=== PATIENT | male | born 1995 | race Caucasian/White ===

== ENCOUNTER 2020-03-17 21:06 | Emergency (ER) | payer MEDICAID, SELFPAY ==
[2020-03-17 21:07] VITALS: BP 124/82; PULSE 82; RESP 16; TEMP 37.1; O2SAT 97; BMI 22.1
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
[2020-03-17 21:50] VITALS: BP 000/00; PULSE 0; RESP 0; TEMP -17.7; TEMP 0; O2SAT 0
== END 2020-03-17 21:50 | disposition home or self-care (01) ==
PROVIDERS: Emergency Provider Emergency Medicine
DX: S00.83XA Contusion of other part of head, initial encounter (principal); Y04.0XXA Assault by unarmed brawl or fight, initial encounter; Y92.9 Unspecified place or not applicable; F17.210 Nicotine dependence, cigarettes, uncomplicated
CPT/HCPCS: 99281

== ENCOUNTER 2020-04-16 16:39 | Emergency (ER) | payer MEDICAID, SELFPAY ==
[2020-04-16 17:00] VITALS: BP 114/69; PULSE 93; RESP 18; TEMP 36.7; O2SAT 98; BMI 25.0
--- NOTE | 2020-04-16 17:19 | HMH.EDUTC ---
[facility] [place] Disposition Clinical Impression: Abscess Disposition: Home, Self-Care Condition on Discharge: Good Instructions: Clindamycin, DI for Skin Abscess Additional Instructions: *Start antibiotic(s) immediately and be sure to take as ordered for the FULL length of time although you may be feeling better or start to see improvement in the next 24-48 hours *Monitor closely. Outlined redness so that you can monitor easier. Follow up immediately for new or worsening symptoms including but not limited to redness, swelling, streaking from site fever or chills. *Warm compress 15 minutes 3-4 times day *Never squeeze or pop these on your own. Seek immediate medical attention next time this occurs *Monitor Temp. Tylenol every 4 hours as needed and ibuprofen every 6 hours as needed (as long as your primary care doctor has told you that it is ok to take both. For fever, aches, pain. ER if no less that 101 despite Tylenol and ibuprofen Follow up with your family doctor/primary care physician in the next 48-72 hours if no improvement Stop taking Bactrim and start taking Clindamycin as prescribed Follow up with your Family Doctor in the next 48-72 hours for reassessment of area for improvement or any worsening of symptoms your wound culture should be back to make sure you are on the right medication and follow up with them immediately if any worsening of symptoms Follow up with Dermatology or at with home mortgage disclosure act specialist if swelling or redness to eye area Return if needed Prescriptions: clindamycin HCL [Cleocin HCl] 300 mg PO QID 10 Days #40 cap Transmission Status: Received by [id number] Referrals: Kevon Valencia MD [Referring] - Dewayne Haile MD [Primary Care Provider] - As needed (Follow up in the next 48-72 hours for reassessment of area for improvement and immediately if any worsening of symptoms) Time of Disposition: 17:36 Medical Decision Making - Otoniel Inquiry Pt receiving controlled substance: No Otoniel was queried for this patient: No Vital Signs: 04/16/20 17:00 Temperature 98.1 F Temperature Source Oral Pulse Rate [Right Brachial] 93 H Respiratory Rate 18 Blood Pressure [Right Arm] 114/69 Blood Pressure Mean [Right Arm] 84 Blood Pressure Source [Right Arm] Automatic Cuff Blood Pressure Position [Right Arm] Sitting 02 Sat by Pulse Oximetry 98 Oxygen Delivery Method Room Air Orders (Tests/Meds): ORDERS Category Date Time Status Wound Culture and Gram Stain Stat Micro 04/16/20 17:33 Ordered Medical Decision Narrative: Patient reports area on face getting worse despite being on Bactrim Discussed with pharmacy and agreed wound culture obtained and sent to lab, will change medication to CLindamycin 300mg QID due to close proxiemity to eye and will have patient follow up immediately if any worsening of symptoms and follow up in the next 48 hours for wound culture results and re-evaluation for improvement with PCP or customs import specialist area on forehead where abscess initially started appears mildly swollen no drainage and area on bridge of nose small amount of drainage collected and sent to lab patient educated to apply warm compress and follow up immediately if swelling moves to eye or any worsening of symptoms [facility] [place] HPI - General Stated complaint: Rash on face Time Seen by Provider: 04/16/20 17:19 Mode of Arrival: Ambulatory Limitations: No Limitations Description of Symptoms (Recalled from Triage Doc. by RN): PATIENT STATES HE THOUGHT HE HAD A PIMPLE ON HIS FOREHEAD AND POPPED. STATES IT HAS SPREAD TOWARD HIS EYE/NOSE AREA. HE BELIEVES HE HAS MRSA HEENT Symptoms (Recalled from RN notes): No Resp Symptoms (Recalled from RN notes): No Skin Symptoms (Recalled from RN notes): Yes MS Symptoms (Recalled from RN notes): No Functional Status (Recalled from RN notes): WNL - History of Present Illness Provider Complaint: Patient state that he has a history of MRSA states that started with a pimple like lesion on his forehe
[2020-04-16 17:28] VITALS: BP 114/69; PULSE 93; RESP 18; TEMP 36.7; O2SAT 98
== END 2020-04-16 17:30 | disposition home or self-care (01) ==
PROVIDERS: Emergency Provider Nurse Practitioner; PCP Family Medicine
DX: L02.01 Cutaneous abscess of face (principal)
CPT/HCPCS: 87070; 87077; 87186; 87205; 99201

== ENCOUNTER 2020-11-28 10:27 | Emergency (ER) | payer OTHER, SELFPAY ==
[2020-11-28 10:30] VITALS: BP 157/96; PULSE 103; RESP 18; TEMP 37.3; O2SAT 98; BMI 21.4
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
[2020-11-28 10:53] VITALS: BP 157/96; PULSE 103; RESP 18; TEMP 37.3; O2SAT 98
== END 2020-11-28 10:57 | disposition home or self-care (01) ==
PROVIDERS: Emergency Provider Nurse Practitioner; PCP Family Medicine
DX: H61.22 Impacted cerumen, left ear (principal); F17.210 Nicotine dependence, cigarettes, uncomplicated
CPT/HCPCS: 99202; G0463

== ENCOUNTER 2021-03-22 10:59 | Emergency (ER) | payer OTHER, SELFPAY ==
[2021-03-22 11:56] VITALS: BP 132/77; PULSE 116; RESP 16; TEMP 36.9; O2SAT 97; BMI 20.7
--- NOTE | 2021-03-22 12:48 | HMH.EDUTC ---
[facility] [place] Disposition Clinical Impression: Pilonidal cyst Disposition: Home, Self-Care Condition on Discharge: Good Instructions: Pilonidal Cyst, DI for Pilonidal Cyst Drainage or Removal Additional Instructions: Apply warm wet compresses to the affected sites three or four times per day for 15 minutes as tolerated. Or, you could sit in a bath tub filled with warm epsom salts water for 15 minutes 3 or 4 times per day for the next several days. Take the antibiotics as directed. Follow up with your regular doctor. We will give you a list of providers that are taking new patients. I put in a referral to surgery (Dr. Grey). You should call and make yourself an appointment to follow up there. Even if this episode gets better with no additional intervention, pilonoidal cysts reoccur a lot of the times. GO TO THE ER FOR ANY WORSENING SYMPTOMS OR CONCERNS You could get a donut pillow from your pharmacy. This may help you get slightly more comfortable. Make sure you don't fall asleep on it or injure yourself in any way with it if you get it. Prescriptions: Ibuprofen [Ibuprofen 800mg Tablet] 800 mg PO Q8HP PRN #30 tab PRN Reason: Moderate Pain Transmission Status: Received by [facility] #[id number] cephALEXin [cephALEXin 500mg capsule] 500 mg PO Q6H 10 Days #40 cap Transmission Status: Received by [facility] #[id number] Referrals: Provider,MD Arnulfo [Primary Care Provider] - Devyn Grey MD [Staff Physician] - Medical Decision Making - Medical Records Medical records reviewed: No: I reviewed the patient's medical records. - Otoniel Inquiry Pt receiving controlled substance: No Vital Signs: 03/22/21 11:56 03/22/21 12:55 Temperature 98.4 F 98.4 F Temperature Source Oral Pulse Rate 116 H Pulse Rate [Left Radial] 116 H Respiratory Rate 16 16 Blood Pressure 132/74 Blood Pressure [Right Arm] 132/77 Blood Pressure Mean [Right Arm] 95 02 Sat by Pulse Oximetry 97 Oxygen Delivery Method Room Air [facility] [place] HPI - General Stated complaint: knot below tailbone Time Seen by Provider: 03/22/21 12:48 Mode of Arrival: Ambulatory Source of Information: Patient Limitations: No Limitations Description of Symptoms (Recalled from Triage Doc. by RN): pt to [facility] c/o a knot under his tailbone that he first noticed x2 days ago. pt states the knot is painful when he sits and is tender when he walks HEENT Symptoms (Recalled from RN notes): No Resp Symptoms (Recalled from RN notes): No Skin Symptoms (Recalled from RN notes): Yes (knot on tailbone) MS Symptoms (Recalled from RN notes): No Functional Status (Recalled from RN notes): na - History of Present Illness Provider Complaint: He states that he has had a swollen and very tender area just at the top of his butt crack for the past 3 days. He denies any injury. He denies any fever, chills, or feeling bad other than being in pain. Sitting makes it worse, but getting up doesn't help it that much either. He has never had similar symptoms before this episode. - Related Data Home Medications Medication Instructions Recorded Confirmed Buprenorphine HCl/Naloxone HCl 2 each SL DAILY 11/28/20 11/28/20 [Buprenorphin-Naloxon 8-2 mg Sl] Previous Rx's Medication Instructions Recorded Ibuprofen [Ibuprofen 800mg 800 mg PO Q8HP PRN #30 tab 03/22/21 Tablet] cephALEXin [cephALEXin 500mg 500 mg PO Q6H 10 Days #40 cap 03/22/21 capsule] Allergies Allergy/AdvReac Type Severity Reaction Status Date / Time No Known Allergies Allergy Verified 05/12/19 03:58 - Worker's Comp Is this a Worker's Comp case?: No [facility] History - Hepatitis A Screen Drug use history?: No High risk sexual behaviors?: No History of sexually transmitted infection?: No Currently employed?: No Childcare worker?: No Do you have indoor plumbing?: Yes Do you have electricity?: Yes Attestation statement:: This patient has been screened for Hepatit
[2021-03-22 12:55] VITALS: BP 132/74; PULSE 116; RESP 16; TEMP 36.9
== END 2021-03-22 13:04 | disposition home or self-care (01) ==
PROVIDERS: Emergency Provider Nurse Practitioner Family
DX: L05.91 Pilonidal cyst without abscess (principal); F17.210 Nicotine dependence, cigarettes, uncomplicated
CPT/HCPCS: 99202; G0463

== ENCOUNTER 2021-08-01 19:39 | Emergency (ER) | payer OTHER, SELFPAY ==
[2021-08-01 19:45] VITALS: BP 127/76; PULSE 82; RESP 18; TEMP 37.3; O2SAT 97; BMI 20.7
[2021-08-01 19:56] LABS: UTC Strep Screen (Rapid) Positive (Negative)
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
[2021-08-01 20:08] VITALS: BP 127/76; PULSE 82; RESP 18; TEMP 37.3; O2SAT 97
== END 2021-08-01 20:13 | disposition home or self-care (01) ==
PROVIDERS: Emergency Provider Physician Assistant
DX: J02.0 Streptococcal pharyngitis (principal); B95.0 Streptococcus, group A, as the cause of diseases classified elsewhere; F17.210 Nicotine dependence, cigarettes, uncomplicated
CPT/HCPCS: 87880; 99213; G0463

== ENCOUNTER 2022-07-24 11:33 | Emergency (ER) | payer OTHER, SELFPAY ==
[2022-07-24 12:30] VITALS: BP 123/81; PULSE 85; RESP 20; TEMP 36.9; O2SAT 98; BMI 23.1
--- NOTE | 2022-07-24 12:37 | EXP.UTC ---
Discharge Plan Disposition Patient Disposition: Home, Self-Care Condition: Good Prescriptions Prescriptions: New ondansetron 4 mg Tablet,Disintegrating 4 mg PO Q8H PRN (Reason: Nausea) Qty: 20 0RF No Action buprenorphine-naloxone 1 EACH tablet, sublingual 2 each SL DAILY Referrals Follow up/Referrals: Provider,Referral, [Primary Care Provider] - See instructions Activity Restrictions/Add. Instructions Additional Instructions/Restrictions: Drink plenty of fluids. Take tylenol or ibuprofen for pain or fever. Take the zofran for nausea. Follow up with your regular doctor. GO TO THE ER FOR ANY WORSENING SYMPTOMS Clinical Impressions Clinical Impression: Gastroenteritis Stand Alone Forms Stand Alone Forms: Work/School Release Instructions Patient Instructions: DI for Viral Gastroenteritis -- Adult Discharge ED Provider: Lisbeth Crump [facility] General Stated complaint: Fever, diarrhea, vomiting Time Seen by Provider: 07/24/22 12:37 History of Present Illness Provider Complaint: He states that for the past 2 days he has had n/v/d diarrhea. 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 Related Data Home Medications Medication Instructions Recorded Confirmed buprenorphine 8 mg-naloxone 2 mg 2 each SL DAILY ADDICTION 11/28/20 07/24/22 sublingual tablet Previous Rx's Medication Instructions Recorded ondansetron 4 mg disintegrating 4 mg PO Q8H PRN Nausea #20 tabs 07/24/22 tablet Allergies Allergy/AdvReac Type Severity Reaction Status Date / Time No Known Allergies Allergy Verified 07/24/22 12:40 [facility] Disclaimer: The information contained in this section may have been updated after the patient was seen, as this information can be updated by other users. Social History Smoking Status: Current every day smoker tobacco type: cigarettes packs per day: 1 alcohol intake: never substance use type: heroin and opiates current occupational status: other Travel in the last 8 weeks: None ROS Obtained: Yes All systems reviewed & no additional complaints except as documented Constitutional Constitutional: Denies chills, Denies fever(s) and Reports poor appetite ENT Ears, Nose, Mouth, and Throat: Denies dizziness and Denies sore throat Cardiovascular Cardiovascular: Denies dyspnea Respiratory Respiratory: Denies chest congestion, Denies cough and Denies dyspnea Gastrointestinal Gastrointestingal: Reports as per HPI; Denies abdominal pain Genitourinary Male Genitourinary: Denies hematuria, Denies urinary frequency, Denies urinary hesitancy, Denies urinary incontinence and Denies urinary urgency Musculoskeletal Musculoskeletal: Denies arthralgias Integumentary/Breasts Skin/Breast: Denies rash Neurologic Neurologic: Denies dizziness Physical Exam General General appearance: alert and in no apparent distress Head Head exam: atraumatic and normocephalic Eye Eye exam: Present normal appearance, PERRL and EOMI ENT ENT exam: Present normal exam, normal oropharynx, mucous membranes moist, TM's normal bilaterally and normal external ear exam Neck Neck exam: Present normal inspection, full ROM and trachea midline; Absent tenderness, meningismus or lymphadenopathy Chest Chest inspection: Present normal inspection and symmetric chest wall rise; Absent tenderness, rash or abscess Respiratory Respiratory exam: Present normal lung sounds bilaterally; Absent respiratory distress, wheezes or stridor Cardiovascular Cardiovascular exam: Present regular rate and normal rhythm; Absent irregular rhythm, systolic murmur, diastolic murmur or JVD Abdominal Exam Abdominal exam: Present soft and hyperactive bowel sounds; Absent distention, tenderness, guarding, rebound, rigidity, psoas sign, obturator sign, heel tap sign, Lynn's sign, Ro
[2022-07-24 13:17] VITALS: BP 123/81; PULSE 85; RESP 20; TEMP 36.9; O2SAT 98
== END 2022-07-24 13:16 | disposition home or self-care (01) ==
PROVIDERS: Emergency Provider Physician Assistant
DX: K52.9 Noninfective gastroenteritis and colitis, unspecified (principal); B34.9 Viral infection, unspecified; F17.210 Nicotine dependence, cigarettes, uncomplicated; F11.10 Opioid abuse, uncomplicated
CPT/HCPCS: 99212; G0463

== ENCOUNTER 2024-04-03 09:56 | Emergency (ER) | payer OTHER, SELFPAY ==
[2024-04-03 10:18] VITALS: BP 117/87; PULSE 78; RESP 18; TEMP 37; O2SAT 97; BMI 24.3
[2024-04-03 10:30] LABS: UTC Strep Screen (Rapid) Negative (Negative)
--- NOTE | 2024-04-03 11:01 | EXP.UTC ---
Discharge Plan Disposition Patient Disposition: Home, Self-Care Condition: Good Prescriptions Prescriptions: No Action buprenorphine-naloxone 1 EACH tablet, sublingual 2 each SL DAILY Referrals Follow up/Referrals: Provider,Referral, MD [Primary Care Provider] - See instructions Activity Restrictions/Add. Instructions Additional Instructions/Restrictions: *Monitor Temp, Over the counter Motrin or Tylenol as directed/as needed Tylenol every 4 hours and Motrin every 6 hours (as long as your family doctor has told you that you can take it) for fever or pain. and straight to ER if unable to lower temp less than 101.0 after medication given *Warm salt water gargles may help to soothe the throat *Throat Lozenges? *Warm fluids like tea with honey may help to soothe the throat? *Sleep elevated *Humidifier/Vaporizer Your throat swab was sent for culture. Those results are typically sent to your primary care. Be sure to follow up in 2-3 days with your family doctor/primary care physician if no improvement so they can review those result and treat if necessary. If you don?t have a primary care doctor, I recommend you get one but in the mean time, you will have to return to a walk in clinic Follow up IMMEDIATELY for new or worsening symptoms or no Noticeable improvement over the next 48-72 hours. 911 for difficulty breathing or swallowing Clinical Impressions Clinical Impression: Viral upper respiratory infection Stand Alone Forms Stand Alone Forms: Work/School Release Instructions Patient Instructions: Sore Throat Print Language Print Language: Burkinan Discharge ED Provider: Carmen Greer [facility] [place] General Stated complaint: sore thorat, body aches Mode of Arrival: Ambulatory Source of Information: Patient Time Seen by Provider: 04/03/24 11:01 Description of Symptoms (Recalled from Triage Doc. by RN): SORE THROAT, BODY ACHES, DENIES FEVERS HEENT Symptoms (Recalled from RN notes): Yes Resp Symptoms (Recalled from RN notes): No Skin Symptoms (Recalled from RN notes): No MS Symptoms (Recalled from RN notes): No Functional Status (Recalled from RN notes): WNL History of Present Illness Provider Complaint: Patient states that he has been having sore throat and body aches, states that he has been around a child that has had a virus not sure which one, States that he has been sick for a couple days so today he came to get checked Related Data Home Medications ?Medication ?Instructions ?Recorded ?Confirmed buprenorphine 8 mg-naloxone 2 mg 2 each SL DAILY ADDICTION 11/28/20 04/03/24 sublingual tablet Allergies Allergy/AdvReac Type Severity Reaction Status Date / Time No Known Allergies Allergy Verified 07/24/22 12:40 Worker's Comp Is this a Worker's Comp case?: No [facility] Disclaimer: The information contained in this section may have been updated after the patient was seen, as this information can be updated by other users. Social History Smoking Status: Current every day smoker tobacco type: cigarettes packs per day: 1 alcohol intake: never substance use type: heroin and opiates current occupational status: other Travel in the last 8 weeks: None ROS Obtained: Yes All systems reviewed & no additional complaints except as documented and Yes Systems reviewed as appropriate & no additional complaints except as documented Constitutional Constitutional: Reports system reviewed and no additional complaints, except as documented, Reports as per HPI and Reports headache(s) ENT Ears, Nose, Mouth, and Throat: Reports system reviewed and no additional complaints, except as documented, Reports as per HPI, Reports headache(s) and Reports sore throat Cardiovascular Cardiovascular: Reports system reviewed and no additional complaints, except as documented and Reports as per HPI Respiratory Respiratory: Reports system reviewed and no additional complaints, except as documented and Reports as per HPI Gastrointestinal Gastrointestingal: Reports system reviewed and no additional complaints, except as documented and as per HPI Genitourinary Male Genitourinary: Reports system reviewed and no additional complaints, except as documented and Reports as per HPI Neurologic Neurologic: Reports headache(s) Physical Exam General General appearance: alert and in no apparent distress ENT ENT exam: Present mucous membranes moist Expanded ENT Exam Nose exam: Absent sinus tenderness Throat exam: Present tonsillar erythema Respiratory Respiratory exam: Present normal lung sounds bilaterally; Absent respiratory distress or wheezes Cardiovascular Cardiovascular exam: Present regular rate, normal rhythm and normal heart sounds Abdominal Exam Abdominal exam: Present soft and normal bowel sounds; Absent distention or tenderness Neurological Exam Neurological exam: Present alert, oriented X3 and normal gait Medical Decision Making Medical Records Screening: Per USPSTF and CDC recommendations, given the prevalence of disease in our region, it is our hospital?s policy to screen for HIV and viral Hepatitis for all patients aged 18 and over and those with ongoing risk factors. Otoniel Inquiry Pt receiving controlled substance: No Otoniel was queried for this patient: No Vital Signs: 04/03/24 10:18 Temperature 98.6 F Temperature Source Oral Pulse Rate [Left Radial] 78 Respiratory Rate 18 Blood Pressure [Left Arm] 117/87 Blood Pressure Mean [Left Arm] 97 02 Sat by Pulse Oximetry 97 Lab Data Lab results reviewed: Yes I reviewed the patient's lab results. Lab Results 04/03/24 10:21: Strep Scn Rapid Clinic Negative Orders (Tests/Meds): ORDERS Category Date Time Status Strep Screen Confirmation Stat Micro 04/03/24 10:21 Received
[2024-04-03 11:19] VITALS: BP 117/87; PULSE 78; RESP 18; TEMP 37
== END 2024-04-03 11:20 | disposition home or self-care (01) ==
PROVIDERS: Emergency Provider Nurse Practitioner
DX: J06.9 Acute upper respiratory infection, unspecified (principal)
CPT/HCPCS: 87880; 99213; G0381